=== PATIENT | female | born 1950 | race Caucasian/White ===

== ENCOUNTER 2019-12-24 09:56 | Emergency (ER) | payer OTHER ==
[~2019-12-24] VITALS: Ht 149.9 cm; Wt 54.4 kg
[~2019-12-24 09:56] MED LIST: LEVOTHYROXINE SO1 GM; OSEL75CA PO; TUSSI PRES-B L120 M1 PO
[2019-12-24] MEDS ORDERED: OSEL75CA PO (15:11)
[2019-12-24] MEDS ORDERED: MUCINEX DM ER1 EAC1 PO (15:11)
[2019-12-24] MEDS ORDERED: AIRBORNE EFFER1 EACH PO (15:11)
[2019-12-24] MEDS ORDERED: TESSALON PERLE100 M1 PO (15:11)
== END 2019-12-24 15:23 | disposition home or self-care (01) ==
LOC: ER 09:56
DX: J11.1 Influenza due to unidentified influenza virus with other respiratory manifestations (principal)

== ENCOUNTER 2020-01-10 09:00 | Outpatient (CLI) | payer OTHER ==
[~2020-01-10 09:00] MED LIST changes: +AIRBORNE EFFER1 EACH PO; +MUCINEX DM ER1 EAC1 PO; +TESSALON PERLE100 M1 PO
== END 2020-01-10 09:10 | disposition home or self-care (01) ==
LOC: SONOGRAMA 09:00
DX: C73 Malignant neoplasm of thyroid gland (principal); E89.0 Postprocedural hypothyroidism; E04.8 Other specified nontoxic goiter

== ENCOUNTER 2020-01-10 14:25 | Outpatient (CLI) | payer OTHER | END 2020-01-10 14:28 | disposition home or self-care (01) | LOC: LAB 14:25 | DX: D53.8 Other specified nutritional anemias (principal); I11.0 Hypertensive heart disease with heart failure; E11.9 Type 2 diabetes mellitus without complications; C73 Malignant neoplasm of thyroid gland; E89.0 Postprocedural hypothyroidism; N39.0 Urinary tract infection, site not specified ==

== ENCOUNTER → 2021-10-01 08:12 | Outpatient (CLI) | payer OTHER ==
[~2021-10-01 08:12] MED LIST changes: +BONIVA150 MG PO; +CLARITIN10 M1 PO; +FLONASE SENSIM5.9 ML; +LEVOXYL100 MCG PO
== END | disposition home or self-care (01) ==
LOC: LAB 08:12
PROVIDERS: ATTEND Internal Medicine Endocrinology, Diabetes & Metabolism
DX: I11.0 Hypertensive heart disease with heart failure (principal); D53.8 Other specified nutritional anemias; N39.0 Urinary tract infection, site not specified; C73 Malignant neoplasm of thyroid gland; E89.0 Postprocedural hypothyroidism; E78.2 Mixed hyperlipidemia; E22.2 Syndrome of inappropriate secretion of antidiuretic hormone; N18.2 Chronic kidney disease, stage 2 (mild)

== ENCOUNTER 2021-10-01 09:50 | Emergency (ER) | payer OTHER ==
[~2021-10-01] VITALS: Ht 149.9 cm; Wt 59.0 kg
[~2021-10-01 09:50] MED LIST changes: -BONIVA150 MG PO; -CLARITIN10 M1 PO; -FLONASE SENSIM5.9 ML; -LEVOXYL100 MCG PO
[2021-10-01] MEDS ORDERED: LEVOXYL100 MCG PO (10:16)
[2021-10-01] MEDS ORDERED: CLARITIN10 M1 PO (10:17)
[2021-10-01] MEDS ORDERED: FLONASE SENSIM5.9 ML (10:17)
[2021-10-01] MEDS ORDERED: BONIVA150 MG PO (10:17)
== END 2021-10-01 12:42 | disposition home or self-care (01) ==
LOC: ER 09:50
DX: S60.212A Contusion of left wrist, initial encounter (principal); S60.211A Contusion of right wrist, initial encounter; S80.02XA Contusion of left knee, initial encounter; R55 Syncope and collapse; W18.09XA Striking against other object with subsequent fall, initial encounter; Y93.89 Activity, other specified; Y92.238 Other place in hospital as the place of occurrence of the external cause; Y99.8 Other external cause status

== ENCOUNTER 2021-10-01 13:44 | Outpatient (CLI) | payer OTHER ==
[~2021-10-01 13:44] MED LIST changes: +BONIVA150 MG PO; +CLARITIN10 M1 PO; +FLONASE SENSIM5.9 ML; +LEVOXYL100 MCG PO
== END 2021-10-01 13:53 | disposition home or self-care (01) ==
LOC: SONOGRAMA 13:44
PROVIDERS: ATTEND Internal Medicine Endocrinology, Diabetes & Metabolism
DX: C73 Malignant neoplasm of thyroid gland (principal); E89.0 Postprocedural hypothyroidism

== ENCOUNTER 2021-10-01 14:00 | Outpatient (CLI) | payer OTHER | END 2021-10-01 14:01 | disposition home or self-care (01) | LOC: NUCLEAR 14:00 | PROVIDERS: ATTEND Internal Medicine Endocrinology, Diabetes & Metabolism | DX: M81.0 Age-related osteoporosis without current pathological fracture (principal); E66.01 Morbid (severe) obesity due to excess calories ==

== ENCOUNTER 2023-03-04 08:00 | Outpatient (CLI) | payer OTHER | END 2023-03-04 23:00 | disposition home or self-care (01) | LOC: LAB 08:00 | PROVIDERS: ATTEND Internal Medicine Endocrinology, Diabetes & Metabolism | DX: I11.0 Hypertensive heart disease with heart failure (principal); D53.9 Nutritional anemia, unspecified; N39.0 Urinary tract infection, site not specified; E11.9 Type 2 diabetes mellitus without complications; C75.9 Malignant neoplasm of endocrine gland, unspecified; E04.9 Nontoxic goiter, unspecified; E78.2 Mixed hyperlipidemia ==

== ENCOUNTER 2023-03-04 12:41 | Outpatient (CLI) | payer OTHER | END 2023-03-04 12:46 | disposition home or self-care (01) | LOC: SONOGRAMA 12:41 | PROVIDERS: ATTEND Internal Medicine Endocrinology, Diabetes & Metabolism | DX: E89.0 Postprocedural hypothyroidism (principal); C75.9 Malignant neoplasm of endocrine gland, unspecified; I11.0 Hypertensive heart disease with heart failure ==

== ENCOUNTER 2023-03-19 08:44 | Outpatient (CLI) | payer OTHER | END 2023-03-19 08:47 | disposition home or self-care (01) | LOC: SONOGRAMA 08:44 | PROVIDERS: ATTEND Pathology Anatomic Pathology & Clinical Pathology | DX: D34 Benign neoplasm of thyroid gland (principal); D36.0 Benign neoplasm of lymph nodes ==

== ENCOUNTER → 2024-12-23 | Emergency (ER) | payer OTHER ==
[~2024-12-23] VITALS: Ht 149.9 cm; Wt 56.2 kg
[~2024-12-23] MED LIST changes: +GUAIFENESIN/DEXTROMETHORPHAN 10ML BLIST.PACK PO ONE; +GUAIFENESIN/DEXTROMETHORPHAN 5ML BLIST.PACK PO STA
[2024-12-23 10:10] LABS: HEMATOCRIT 44.2 % (36.0-45.00); MEAN CELL VOLUME 89.6 fL (80.00-100.00); MEAN CORPUSCULAR HEMOGLOBIN 30.5 pg (27.00-32.0); MEAN CORPUSCULAR HGB CONC 34.1 g/dl (32.0-36.0); PLATELET COUNT 255 K/uL (150-450); RED BLOOD COUNT 4.93 M/uL (4.00-6.00); RED CELL DISTRIBUTION WIDTH 13.6 % (11.5-14.5)
[2024-12-23 10:25] LABS: CALCIUM 9.4 mg/dL (8.5-10.1); CREATININE SERUM 0.89 mg/dL (0.55-1.02); GFR 61.83; POTASSIUM 4.13 mEq/L (3.5-5.1)
== END | disposition home or self-care (01) ==
LOC: ER 07:38
PROVIDERS: General Practice
DX: U07.1 COVID-19 (principal); J00 Acute nasopharyngitis [common cold]; Z88.0 Allergy status to penicillin; Z88.6 Allergy status to analgesic agent